=== PATIENT | male | born 2000 | race Hispanic/Latino ===

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

== ENCOUNTER 2019-11-13 11:06 | Emergency (ER) | payer OTHER, BC ==
[~2019-11-13] VITALS: Ht 172.7 cm; Wt 63.5 kg
[~2019-11-13 11:06] MED LIST: MINOCYCLINE HC100 MG PO
== END 2019-11-13 12:17 | disposition home or self-care (01) ==
LOC: ED 11:06
DX: S00.83XA Contusion of other part of head, initial encounter (principal); X58.XXXA Exposure to other specified factors, initial encounter
CPT/HCPCS: 99283

== ENCOUNTER 2020-05-07 13:19 | Emergency (ER) | payer OTHER, BC ==
[~2020-05-07] VITALS: Ht 172.7 cm; Wt 63.5 kg
== END 2020-05-07 18:07 | disposition home or self-care (01) ==
LOC: ED 13:19
DX: S06.0X0A Concussion without loss of consciousness, initial encounter (principal); W22.8XXA Striking against or struck by other objects, initial encounter; Z79.899 Other long term (current) drug therapy
CPT/HCPCS: 99283

== ENCOUNTER 2023-06-20 14:09 | Emergency (ER) | payer OTHER, BC ==
[~2023-06-20] VITALS: Ht 172.7 cm; Wt 68.0 kg
[2023-06-20 20:45] VITALS: BP 133/87
== END 2023-06-20 20:46 | disposition home or self-care (01) ==
LOC: ED 14:09
DX: S86.812A Strain of other muscle(s) and tendon(s) at lower leg level, left leg, initial encounter (principal); X50.0XXA Overexertion from strenuous movement or load, initial encounter; Y93.H3 Activity, building and construction; Y99.0 Civilian activity done for income or pay
CPT/HCPCS: 73560; 99283-25; A9270

== ENCOUNTER 2024-08-20 10:14 | Emergency (ER) | payer OTHER ==
[~2024-08-20] VITALS: Ht 172.7 cm; Wt 99.3 kg
[2024-08-20] MEDS ORDERED: IBUPROFEN 600 MG TAB PO ONE (15:30)
[2024-08-20 15:35] VITALS: BP 133/82
== END 2024-08-20 15:40 | disposition home or self-care (01) ==
LOC: ED 10:14
DX: S63.501A Unspecified sprain of right wrist, initial encounter (principal); W22.8XXA Striking against or struck by other objects, initial encounter; Y93.02 Activity, running
CPT/HCPCS: 73110; 99283; A9270